=== PATIENT | female | born 1995 | race Caucasian/White ===

== ENCOUNTER 2016-08-10 22:03 | Observation (INO) | payer BC, OTHER ==
[~2016-08-10] VITALS: Ht 157.5 cm; Wt 62.1 kg
[2016-08-10] MEDS ORDERED: SODIUM CHLORIDE 0.9% 1000ML 1,000 ML IV STA ×2 (22:16)
[2016-08-10] MEDS ORDERED: MoRPHine SULFATE 4 MG/ML 1 ML CARP\\VIAL IV STA ×2 (22:16→23:56)
[2016-08-10] MEDS ORDERED: ONDANSETRON INJ 2 MG/ML 2 ML VIAL IV STA (22:16)
[2016-08-10] MEDS ORDERED: LORAZEPAM 1 MG TAB ONE (22:22)
[2016-08-10] MEDS ORDERED: LORAZEPAM 1 MG TAB SL STA (22:23)
[2016-08-10] MEDS ORDERED: OMEP40CA41 PO (22:31)
[2016-08-10 23:11] LABS: BASO % 0.3 %; BASO ABS # 0.02 K/uL (0-0.2); COMPLETE YES; EOS % 0.3 %; HEMATOCRIT 38.2 % (37-47); IG% 0.1 %; LYMPH % 25.7 %; MEAN CELL VOLUME 87.6 fL (80-100); MEAN CORPUSCULAR HEMOGLOBIN 29.1 pg (25-34); MEAN CORPUSCULAR HGB CONC 33.2 g/dl (32-36); MEAN PLATELET VOLUME 12.6 fL (7.4-10.4); NEUT % 68.6 %; PLATELET COUNT 262 K/uL (130-400); RED BLOOD COUNT 4.36 M/uL (4.2-5.4); WHITE BLOOD COUNT 7.38 K/uL (4.8-10.8)
[2016-08-10 23:19] LABS: BUN/CREATININE RATIO 9.3 (10-20); CREATININE 0.8 mg/dl (0.60-1.20); POTASSIUM 3.6 mmol/L (3.5-5.1)
[2016-08-11] VITALS (10 sets, daily range): BP systolic 100–112; BP diastolic 63–76; PULSE 74–103; TEMP 36.6–37; O2SAT 94–97; Ht 157.5 cm; Wt 62.1 kg
[2016-08-11 00:05] LABS: PREG INTERNAL NEGATIVE QC NEG CLEAR BACKGROUND; PREG INTERNAL POSITIVE QC POS CONTROL LINE
[2016-08-11] MEDS ORDERED: CEFOXITIN SOD 2 GM VIAL IV STA (00:37)
[2016-08-11] MEDS ORDERED: NURSING VERBAL MED ORDER ONE (00:45)
[2016-08-11] MEDS ORDERED: MoRPHine SULFATE 4 MG/ML 1 ML CARP\\VIAL IV PRN (01:30)
[2016-08-11] MEDS ORDERED: ONDANSETRON INJ 2 MG/ML 2 ML VIAL IV PRN ×2 (01:30→09:00)
[2016-08-11] MEDS ORDERED: IV FLUIDS COMPLETED PRN (01:45)
[2016-08-11] MEDS: LACTATED RINGER'S 1000ML 1,000 ML IV SCH ×3 (02:04→20:03)
--- NOTE | 2016-08-11 05:21 | EMERGENCY ROOM VISIT NOTE ---
History First contact with patient: 22:09 Chief Complaint: VOMITING Stated Complaint: ABD PAIN,VOMITING Nursing Triage Summary: Pt reports abdominal pain that started a little before dinner tonight. Pt had steak, potatoes, and broccoli for dinner. after dinner pain was worse and began vomiting. History of Present Illness The patient is a 21 year old female who presents to the Emergency Room with complaints of severe upper abdominal pain for the past few hours that started at 6 PM. She's had this for the past 8 months that is intermittent. Her family doctor put her on Protonix. She describes the pain as aching, ranging in severity 8 out of 10. Nothing makes it better or worse. Patient denies chest pain, dyspnea, fever, chills, back pain, urinary symptoms, diarrhea. Review of Systems See HPI for pertinent positives & negatives. A total of 10 systems reviewed and were otherwise negative. Past Medical/Surgical History none Social History Smoking Status: Never Smoker Smokeless Tobacco Use: No Alcohol Use: none Drug Use: none Occupation Status: student Current/Historical Medications Scheduled Omeprazole (Prilosec), 40 MG PO DAILY Allergies Coded Allergies: No Known Allergies (Unverified , 08/10/16) Physical Exam Vital Signs Date Time Temp Pulse Resp B/P Pulse Ox O2 Delivery O2 Flow Rate FiO2 08/11/16 00:06 67 18 90/49 98 Room Air 08/10/16 22:48 Room Air 08/10/16 22:04 36.4 62 16 112/75 98 Room Air Physical Exam VITALS: Vitals are noted on the nurse's note and reviewed by myself. Vital signs stable. GENERAL: Pleasant female, in no acute distress, nondiaphoretic, well-developed well-nourished. SKIN: The skin was without rashes, erythema, edema, or bruising. There is no tenting of the skin. Capillary reflex less than 2 seconds. HEAD: Normocephalic atraumatic. EARS: External auditory canals clear, tympanic membranes pearly hansen without erythema or effusion bilaterally. EYES: Pupils equal round and reactive to light and accommodation. Conjunctivae without injection, sclerae without icterus. Extraocular movements intact. NOSE: Patent, turbinates without inflammation or discharge. MOUTH: Mucous membranes moist. Pharynx without erythema or exudate. Uvula midline. Airway patent. Tongue does not deviate. NECK: Supple without nuchal rigidity. No lymphadenopathy. No thyromegaly. Cervical spine is nontender. No JVD. HEART: Regular rate and rhythm without murmurs gallops or rubs. LUNGS: Clear to auscultation bilaterally without wheezes, rales or rhonchi. No dullness to percussion. No retractions or accessory muscle use. ABDOMEN: Positive bowel sounds x 4. Normal tympanic percussion. Soft, tender to palpation epigastric region. No CVA tenderness, without masses or organomegaly. No guarding or rebound tenderness. MUSCULOSKELETAL: No muscle atrophy, erythema, or edema noted. NEURO: Patient was alert and oriented to person place and time. Normal sensation to light and sharp touch. No focal neurological deficits. Medical Decision & Procedures Laboratory Results 08/10/16 22:45 Red Blood Count 4.36, Mean Corpuscular Volume 87.6, Mean Corpuscular Hemoglobin 29.1, Mean Corpuscular Hemoglobin Concent 33.2, Mean Platelet Volume 12.6, Neutrophils (%) (Auto) 68.6, Lymphocytes (%) (Auto) 25.7, Monocytes (%) (Auto) 5.0, Eosinophils (%) (Auto) 0.3, Basophils (%) (Auto) 0.3, Neutrophils # (Auto) 5.06, Lymphocytes # (Auto) 1.90, Monocytes # (Auto) 0.37, Eosinophils # (Auto) 0.02, Basophils # (Auto) 0.02 08/10/16 22:45 Test 08/10/16 22:45 White Blood Count 7.38 K/uL (4.8-10.8) Red Blood Count 4.36 M/uL (4.2-5.4) Hemoglobin 12.7 g/dL (12.0-16.0) Hematocrit 38.2 % (37-47) Mean Corpuscular Volume 87.6 fL (80-100) Mean Corpuscular Hemoglobin 29.1 pg (25-34) Mean Corpuscular Hemoglobin Concent 33.2 g/dl (32-36) Platelet Count 262 K/uL (130-400) Mean Platelet Volume 12.6 fL (7.4-10.4) Neutrophils (%) (Auto) 68.6 % Lymphocytes (%) (Auto) 25.7 % Monocytes (%) (Auto) 5.0 % Eosinophils (%) (Auto) 0.3 % Basophils (%) (Auto) 0.3 % Neutrophils # (Auto) 5.06 K/uL (1.4-6.5) Lymphocytes # (Auto) 1.90 K/uL (1.2-3.4) Monocytes # (Auto) 0.37 K/uL (0.11-0.59) Eosinophils # (Auto) 0.02 K/uL (0-0.5) Basophils # (Auto) 0.02 K/uL (0-0.2) RDW Standard Deviation 43.0 fL (36.4-46.3) RDW Coefficient of Variation 13.5 % (11.5-14.5) Immature Granulocyte % (Auto) 0.1 % Immature Granulocyte # (Auto) 0.01 K/uL (0.00-0.02) Anion Gap 12.0 mmol/L (3-11) Est Creatinine Clear Calc Drug Dose 96.4 ml/min Estimated GFR () 122.2 Estimated GFR (Non- 105.4 BUN/Creatinine Ratio 9.3 (10-20) Calcium Level 9.0 mg/dl (8.5-10.1) Total Bilirubin 0.3 mg/dl (0.2-1) Direct Bilirubin 0.1 mg/dl (0-0.2) Aspartate Amino Transf (AST/SGOT) 9 U/L (15-37) Alanine Aminotransferase (ALT/SGPT) 14 U/L (12-78) Alkaline Phosphatase 53 U/L (45-117) Total Protein 7.8 gm/dl (6.4-8.2) Albumin 4.0 gm/dl (3.4-5.0) Lipase 107 U/L (73-393) Human Chorionic Gonadotropin, Qual NEG (NEG) Medications Administered Medications (Trade) Dose Ordered Sig/Monica Route Start Time Stop Time Status Last Admin Dose Admin Morphine Sulfate (MoRPHine SULFATE INJ) 4 mg NOW STAT IV 08/10/16 22:16 08/10/16 22:19 DC 08/10/16 22:46 4 MG Ondansetron HCl 4 mg 4 mg NOW STAT IV 08/10/16 22:16 08/10/16 22:19 DC 08/10/16 22:46 4 MG Sodium Chloride 1,000 ml @ 999 mls/hr Q1H1M STAT IV 08/10/16 22:16 08/10/16 23:16 DC 08/10/16 22:46 999 MLS/HR Sodium Chloride (Nss 1000ml) 1,000 ml @ 125 mls/hr Q8H STAT IV 08/10/16 22:16 08/11/16 01:18 DC 08/11/16 00:03 125 MLS/HR Lorazepam (Ativan Tab) 1 mg NOW STAT SL 08/10/16 22:23 08/10/16 22:24 DC 08/10/16 22:25 1 MG Morphine Sulfate (MoRPHine SULFATE INJ) 4 mg NOW STAT IV 08/10/16 23:56 08/10/16 23:58 DC 08/11/16 00:03 4 MG Cefoxitin Sodium (Mefoxin IV) 2,000 mg NOW STAT IV 08/11/16 00:37 08/11/16 00:39 DC 08/11/16 01:06 2,000 MG ED Course Prior records/ancillary studies reviewed. Triage Nursing notes reviewed. Additional history obtained from family The patient's history was concerning for abdominal pain. Differential diagnosis: Etiologies such as appendicitis, diverticulitis, PUD, biliary pathology, UTI, pancreatitis, obstruction, mesenteric ischemia, aortic pathology, infections, inflammatory bowel disease, renal colic, as well as others were entertained. Physical examination findings: As above. ER treatment provided: Morphine, Zofran, IV fluids, Mefoxin On reassessment the patient felt better. Diagnostics interpreted by me: The labs revealed no worrisome leukocytosis. Mild hyperglycemia without DKA. Imaging studies: Ultrasound was read by stat radiology and reviewed by myself concerning for acute cholecystitis Consultation: A consultation was placed with the surgeon, Dr. Au. The case was discussed and diagnostics were reviewed. The patient was evaluated in the ER for further treatment. Exam and history seem consistent with acute cholecystitis. Patient will be evaluated by surgery for further evaluation and treatment. She was started on antibiotics. She is placed nothing by mouth. He recommends antibiotics. He gave admission orders to the nurse. By the evaluation outlined above emergent etiologies such as appendicitis, diverticulitis, PUD, UTI, pancreatitis, obstruction, mesenteric ischemia, aortic pathology, infections, inflammatory bowel disease, renal colic, as well as others were deemed relatively unlikely. The pt informed about the findings as listed above. All questions were answered and pleased with the treatment. Case reviewed by attending. Medical Decision As above Impression Primary Impression: Acute cholecystitis Departure Information Dispostion Being Evaluated By Surgeon Condition GOOD Referrals Emilia Andre D.O. (PCP) Patient Instructions [facility]
--- NOTE | 2016-08-11 05:48 | DIAGNOSTIC IMAGING REPORT ---
Right upper quadrant ultrasound GALLBLADDER-ABD LIMITED CLINICAL HISTORY: rug pain, ? GB pain. Nausea. TECHNIQUE: Ultrasound COMPARISON STUDY: None FINDINGS: Gallstones within the gallbladder. Large gallstone at 1.5 cm is at the neck. Trace pericholecystic free fluid. 3 mm gallbladder wall. Common bile duct 4 mm. Liver spleen and right kidney are unremarkable. IMPRESSION: Gallstones with findings suggesting acute cholecystitis. Normal caliber bile ducts. Electronically signed by: Jabier Barry M.D. 08/11/2016 5:47 AM Dictated Date/Time: 08/11/2016 5:45 AM
[2016-08-11] MEDS ORDERED: BUPIVACAINE/EPINEPHRINE 0.5% MPF 1:200,000 30 ML VIAL ONE (08:08)
[2016-08-11] MEDS ORDERED: LIDOCAINE HCL 2% 2 ML VIAL (20MG/ML) ONE (08:10)
[2016-08-11] MEDS ORDERED: NEOSTIGMINE METHYLSULFATE 5 MG/5 ML SYR ONE (08:10)
[2016-08-11] MEDS ORDERED: PROPOFOL IV EMULSION 10 MG/ML 20 ML VIAL IV ONE (08:10)
[2016-08-11] MEDS ORDERED: DEXAMETHASONE SOD INJ 4 MG/ML VIAL ONE (08:10)
[2016-08-11] MEDS ORDERED: MIDAZOLAM HCL 1 MG/ML 2ML VIAL ONE (08:10)
[2016-08-11] MEDS ORDERED: FENTANYL CITRATE INJ 50 MCG/1 ML 2 ML VIAL ONE (08:10)
[2016-08-11] MEDS ORDERED: ONDANSETRON INJ 2 MG/ML 2 ML VIAL ONE (08:10)
[2016-08-11] MEDS ORDERED: GLYCOPYRROLATE INJ 0.2 MG/ML VIAL ONE ×2 (08:10→09:49)
[2016-08-11] MEDS ORDERED: ROCURONIUM BROMIDE 10 MG/ML 5 ML VIAL ONE (08:10)
--- NOTE | 2016-08-11 08:10 | History and Physical ---
History & Physical Date Aug 11, 2016. Chief Complaint right upper quadrant pain/nausea History of Present Illness The patient is a 21 year old female with complaints of Past Medical/Surgical History 21 year old with a several month history of right upper quadrant pain and nausea intermittently. worse episode last night with emesis. US shows calculous cholecystitis Additional History Hepatic Disease: No Endocrine Disorder: No Kidney Disease: No Hypertension: No Heart Disease: No Bleeding Tendencies: No Infectious Diseases: No Allergies Coded Allergies: No Known Allergies (Unverified , 08/10/16) Home Medications Scheduled Omeprazole (Prilosec), 40 MG PO DAILY Physical Examination Skin: warm/dry Eyes: normal inspection, EOMI Head: normocephalic Neck: supple Respiratory/Chest: lungs clear Cardiovascular: regular rate, rhythm, no edema Abdomen / GI: + pertinent finding (RUQ ttp. no g/r/r) Extremities: normal inspection Diagnosis calculous cholecystits Plan of Treatment discussed options/risks of lap brianna ( bleeding/infection/dvt/pe/mi/injury to other organs such as bile ducts, bile leaks etc...). answered questions. wishes to proceed with lap brianna today.
[2016-08-11] MEDS ORDERED: CEFAZOLIN IV 2,000 MG/60 ML D5W IV ONE (08:48)
[2016-08-11] MEDS ORDERED: HYDR-5688 PO (08:53)
--- NOTE | 2016-08-11 08:56 | Discharge Instructions ---
Discharge Instructions Admission Reason for Admission: calculous cholecystitis Discharge Discharge Diagnosis / Problem: calculous cholecystitis Discharge Goals Goal(s): Decrease discomfort, Improve function Activity Recommendations Activity Limitations: as noted below Lifting Limitations: no more than 10 pounds Exercise/Sports Limitations: until after follow-up appointment May Resume Sexual Activity: after follow-up appointment Shower/Bathe: tomorrow . Instructions / Follow-Up Instructions / Follow-Up call [phone] to schedule a follow up appointment with Dr. Au within 1 -2 weeks. Current Hospital Diet Patient's current hospital diet: Discharge Diet Recommended Diet: Regular Diet Procedures Procedures Performed: cholecystectomy Pending Studies Studies pending at discharge: yes List of pending studies: pathology report Medical Emergencies . Who to Call and When: Medical Emergencies: If at any time you feel your situation is an emergency, please call 911 immediately. . Non-Emergent Contact Non-Emergency issues call your: Primary Care Provider, Surgeon Call Non-Emergent contact if: temperature is above 101, wound has increased drainage, wound has increased redness, wound has increased pain . "Provider Documentation" section prepared by Agustín Au. VTE Core Measure Inpt VTE Proph given/why not?: SCD's
[2016-08-11] MEDS ORDERED: HYDROmorphone INJ 1 MG/ML SYR IV PRN (09:00)
[2016-08-11] MEDS ORDERED: MEPERIDINE HCL 25 MG/ML CARP IV PRN (09:00)
[2016-08-11] MEDS ORDERED: ATROPINE SULFATE 0.1 MG/ML 5ML SYR IV PRN (09:00)
[2016-08-11] MEDS ORDERED: FENTANYL CITRATE INJ 50 MCG/1 ML 2 ML VIAL IV PRN (09:00)
[2016-08-11] MEDS ORDERED: LABETALOL HCL IV 5 MG/ML 20ML IV PRN (09:00)
[2016-08-11] MEDS ORDERED: EpHEDrine SULFATE INJ 50 MG/ML AMP IV PRN (09:00)
[2016-08-11] MEDS ORDERED: ESMOLOL HCL 10 MG/ML 10 ML VIAL ONE ×2 (09:19→10:20)
--- NOTE | 2016-08-11 10:42 | [facility] Operative Report ---
Operative Report Operative Date Aug 11, 2016. Pre-Operative Diagnosis Calculous Cholecystits Post-Operative Diagnosis calculous cholecystitis Procedure(s) Performed lap brianna Surgeon Dr. Au Scuba Diver Surgeon(s) none Estimated Blood Loss 5 mL Findings acutely inflammed gallbladder Specimens A: gallbladder and contents Anesthesia GET Complication(s) None Disposition Recovery Room / PACU I attest to the content of the Intraoperative Record and any orders documented therein. Any exceptions are noted below.
[2016-08-11] MEDS ORDERED: HYDROCODONE/ACETAMOPHEN 5/325MG TAB PO PRN (10:45)
--- NOTE | 2016-08-11 10:58 | Anesthesiology Progress Note ---
Anesthesia Post Op Note Date & Time Aug 11, 2016 at 10:58 Vital Signs Pain Intensity: 3 Vital Signs Past 12 Hours Date Time Temp Pulse Resp B/P Pulse Ox O2 Delivery O2 Flow Rate FiO2 08/11/16 10:45 36.9 75 20 107/66 99 Room Air 08/11/16 10:35 36.9 75 20 103/65 98 Room Air 08/11/16 10:25 70 20 105/64 100 Mask 10 08/11/16 10:15 80 14 121/53 100 Mask 10 08/11/16 10:08 36.5 101 14 111/60 100 Mask 10 08/11/16 01:45 Room Air 08/11/16 01:45 36.7 101 20 101/65 97 Room Air 08/11/16 01:31 88 20 108/65 99 08/11/16 01:08 88 20 108/65 99 Room Air 08/11/16 00:06 67 18 90/49 98 Room Air Notes Mental Status: alert / awake / arousable, participated in evaluation Pt Amnestic to Procedure: Yes Nausea / Vomiting: adequately controlled Pain: adequately controlled Airway Patency, RR, SpO2: stable & adequate BP & HR: stable & adequate Hydration State: stable & adequate Anesthetic Complications: no major complications apparent
--- NOTE | 2016-08-11 11:15 | OPERATIVE REPORT ---
DATE OF OPERATION: 08/11/2016 PREOPERATIVE DIAGNOSIS: Acute cholecystitis. POSTOPERATIVE DIAGNOSIS: Same. PROCEDURE: Laparoscopic cholecystectomy. SURGEON: Dr. Au. ANESTHESIA: General endotracheal. ESTIMATED BLOOD LOSS: Approximately 10 mL. COMPLICATIONS: No immediate. OPERATION AND FINDINGS: OPERATIVE NOTE: After informed consent was obtained, the patient was taken to the operating suite and placed in supine position. After successful intubation, the abdomen was sterilely prepped and draped in usual fashion. A periumbilical incision was made with 11 blade scalpel and carried down through the soft tissue using electrocautery. The anterior rectus fascia was opened using electrocautery and two #0 Vicryl stay sutures were placed. Peritoneum was elevated with hemostats and incised under direct vision with the Metzenbaum scissor. A finger sweep was performed. A 12 mm Eulogio trocar was placed and the abdomen was insufflated 18 mmHg. Laparoscope was inserted and the abdomen was examined 360 degrees. We placed a subxiphoid 5 mm port and 2 right upper quadrant 5 mm ports under direct vision. The patient was placed in reverse Trendelenburg position and slightly airplaned to the left. The gallbladder was acutely inflamed. We were able to grasp it and elevate it superiorly and laterally with smooth graspers. A [place] dissector was used to take down adhesions from the neck of the gallbladder. I was then able to skeletonize the cystic duct. I clipped it twice proximally and once distally and transected it using a Metzenbaum scissor. In similar fashion, cystic artery was skeletonized, clipped and divided as well. The gallbladder was then removed from the gallbladder fossa intact with electrocautery. Several small bleeding points in the fossa were controlled using electrocautery. I did thoroughly irrigate the right upper quadrant and suction it out. At the end of the procedure, there was no evidence of a bile leak and there was adequate hemostasis. Look around the remainder of the abdomen showed no obvious abnormalities. The gallbladder was placed into an EndoCatch bag and removed from the camera port site. The trocars were all removed and the abdomen was desufflated. The fascia of the camera port was closed using 0 Vicryl in a [id number] fashion. All the wounds were irrigated and closed using 4-0 Monocryl. Marcaine was injected around them for postoperative analgesia and skin glue used as a dressing. The patient was awakened, extubated, and transferred to recovery in stable condition. I attest to the content of the Intraoperative Record and any orders documented therein. Any exceptio ns are noted below.
[2016-08-11] MEDS: HYDROCODONE/ACETAMOPHEN 5/325MG TAB PO PRN ×2 (11:22→20:01)
[2016-08-12] MEDS: LACTATED RINGER'S 1000ML 1,000 ML IV SCH ×2 (02:30→08:51)
[2016-08-12 03:05] VITALS: BP 99/63; PULSE 66; TEMP 36.6; O2SAT 95
[2016-08-12] MEDS ORDERED: CEFAZOLIN IV 2,000 MG/60 ML D5W IV ONE (06:00)
[2016-08-12 07:22] VITALS: BP 96/59; PULSE 80; TEMP 36.6; O2SAT 98
[2016-08-12] MEDS: HYDROCODONE/ACETAMOPHEN 5/325MG TAB PO PRN (07:25)
--- NOTE | 2016-08-12 08:02 | Surgery Progress Note ---
Surgery Progress Note Date of Service Aug 12, 2016. Subjective Post OP Day: 1 + diet (clears), + feeling well, + pain controlled, No nausea Objective Vital Signs: Date Time Temp Pulse Resp B/P Pulse Ox O2 Delivery O2 Flow Rate FiO2 08/12/16 07:22 36.6 80 16 96/59 98 Room Air 08/12/16 03:05 36.6 66 14 99/63 95 Room Air 08/12/16 00:10 Room Air 08/11/16 23:37 36.8 81 14 100/63 95 Room Air 08/11/16 20:00 95 Room Air 08/11/16 19:23 36.8 103 18 112/76 95 Room Air 08/11/16 16:47 36.9 97 16 106/66 95 Room Air 08/11/16 14:05 92 16 109/71 94 08/11/16 13:03 75 15 107/69 95 08/11/16 12:05 76 15 106/71 95 08/11/16 11:37 37.0 80 16 102/66 94 Room Air 08/11/16 11:35 Room Air 08/11/16 11:05 36.6 74 16 111/72 95 Room Air 08/11/16 11:05 95 Room Air 08/11/16 10:45 36.9 75 20 107/66 99 Room Air 08/11/16 10:35 36.9 75 20 103/65 98 Room Air 08/11/16 10:25 70 20 105/64 100 Mask 10 08/11/16 10:15 80 14 121/53 100 Mask 10 08/11/16 10:08 36.5 101 14 111/60 100 Mask 10 Abdomen: soft Incision(s): clean Assessment & Plan s/p lap brianna advance diet home today if tolerates diet
[2016-08-12] MEDS ORDERED: PANTOprazole SOD 40 MG TAB PO SCH (09:00)
[2016-08-12 09:59] VITALS: BP 96/59; PULSE 80; TEMP 36.6; O2SAT 98
--- NOTE | 2016-08-13 09:13 | DISCHARGE SUMMARY ---
PRIMARY DISCHARGE DIAGNOSIS: Acute cholecystitis and cholelithiasis. PROCEDURE PERFORMED: Laparoscopic cholecystectomy. HOSPITAL COURSE: The patient is a 21-year-old female with RUQ abdominal pain who presented to the Emergency Department with several hours of persistent pain. Ultrasound showed a 1.5 cm stone in gallbladder neck and some gallbladder wall edema. She was admitted to surgery service, taken to the operating room later that morning for laparoscopic cholecystectomy. Procedure was well tolerated. She was returned to the surgical floor. She did well overnight. On postoperative day 1, she was tolerating regular diet and oral analgesics. Her incisions were clean and dry. She was stable for discharge. DISCHARGE INSTRUCTIONS: Discharge home. Follow up with Dr. Au in 2 weeks. She does commute back and forth to school, she was given an excuse for 1 week. DISCHARGE MEDICATIONS: [place] 1-2 tablets every 4 hours as needed. She may continue Prilosec 40 mg daily, although eventually may discontinue that if her symptoms resolve after cholecystectomy. MTDAlycia
== END 2016-08-12 10:43 | disposition home or self-care (01) ==
LOC: ENRESERVTM → ENRESERVDT → C.EDB 22:03 → C.MSW 08-11 00:44
PROVIDERS: ADMIT Surgery; ATTEND Surgery
DX: K80.12 Calculus of gallbladder with acute and chronic cholecystitis without obstruction (principal)